=== PATIENT | male | born 1995 | race Caucasian/White ===

== ENCOUNTER 2016-08-25 17:25 | Emergency (ER) | payer OTHER ==
[~2016-08-25] VITALS: Ht 167.6 cm; Wt 75.7 kg
[2016-08-25 17:35] VITALS: BP 141/93; PULSE 78; RESP 16; O2SAT 97
--- NOTE | 2016-08-25 17:49 | ED.REPORT ---
HPI-General Illness Date of Service Aug 25, 2016 ED Provider: Froy Staples PA-C Wes is an otherwise healthy 21-year-old male presents with a laceration on his left index finger. 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 He washed the wound with soap and water and bandaged it and continued working. He has been dressing it with Band-Aids and antibiotic ointment. Denies bleeding/clotting disorders, diabetes, HIV, immunosuppression, redness, swelling, pain, pus. Patient is unsure when his last tetanus shot was. He is right-handed. Nursing Notes Stated Complaint: FINGER INJURY,WORK RELATED Chief Complaint: Extremity Trauma Nursing Notes Reviewed: Yes Allergies: Coded Allergies: No Known Allergies (Unverified Allergy, 03/07/12) General Time Seen by MD: 17:40 Chief Complaint Laceration Past Medical History Past Medical History Denies Past Surgical History denies Smoking History Former Smoker Social History Alcohol Use: Denies alcohol use Drug Use: Denies drug use Occupation lives with friends Review of Systems Negative unless stated otherwise in history of present illness Physical Exam General: Well appearing, well developed, well nourished, no acute distress. Left index finger: 1 cm thin laceration across the distal tip of finger. Brisk capillary refill adjacent to the wound. Overlying tissue appears nonvital. No redness, swelling, purulence or tenderness. Head: Atraumatic, normocephalic. Eyes: No scleral icterus or injection. No discharge. Vision grossly intact. ENT: Voice clear, hearing grossly intact. Respiratory: No respiratory distress, no increased work of breathing. Speaks in complete sentences. Skin: Warm and dry. Neurological: Grossly nonfocal. Psychological: alert and oriented. Speech appropriate, linear and logical. Behavior appropriate. Vital Signs Vital Signs Date Time Temp Pulse Resp B/P Pulse Ox O2 Delivery O2 Flow Rate FiO2 08/25/16 18:59 36.4 78 16 141/93 97 Room Air 08/25/16 17:35 36.4 78 16 141/93 97 Room Air Initial VS: Vital signs abnormal (elevated blood pressure) Re-Eval/Medical Decision Med Decision/Clinical Course Otherwise healthy 19-year-old male presents with a chief complaint of a laceration sustained approximately 5 days ago on a meat grader. Patient is unsure of his tetanus status. No indication of immunocompromise. Physical examination reveals a roughly 1 cm finger laceration of the distal tip of the left index finger. Overlying tissue appears devitalized however there is no indication of infection. this appears to be healing well. Provided Tdap. I do not see an indication for antibiotics. Advised continuing wound care, primary care follow-up, prior emergency return precautions. Patient verbalizes understanding of and consented to plan. Discharge & Departure Primary Impression: Laceration of finger, left Encounter type: initial encounter Qualified Code: S61.219A - Laceration without foreign body of unspecified finger without damage to nail, initial encounter Additional Impression: Elevated blood pressure reading Disposition: Home Discharge Condition All VS Reviewed: Yes Condition: Stable Additional Instructions: Evaluation for a finger laceration in the emergency department. History and physical are reassuring that this wound appears to be healing quite well, with no sign of infection. I see no indication to open the wound to clean or explore for foreign body. I do not see an indication for antibiotics. Because you are not completely sure when your last tetanus shot was, we have provided you one here in the emergency department. Continue caring for the wound as you have been, with antibiotic ointment and a bandage. I would expect the overlying tissue to peel off as the wound heals. Follow-up with your primary care provider if you have any further concerns. Return to emergency department for new or worsening symptoms including fever, increasing redness, swelling, pain or the appearance of pus. I also note that your blood pressure was elevated during your visit to the emergency department. Please discuss this with your primary care provider. Referrals: Sanam Buenrostro (PCP) EDSupervising Provider for APC: Nabil Delacruz MD copies to: Sanam Buenrostro Seth PA-C Aug 25, 2016 17:49
[2016-08-25] MEDS ORDERED: TdaP Vaccine 0.5 mL Inj IM ONE (17:50)
[2016-08-25 18:59] VITALS: BP 141/93; PULSE 78; RESP 16; O2SAT 97
== END 2016-08-25 19:00 | disposition home or self-care (01) ==
LOC: SED 17:25
DX: S61.211A Laceration without foreign body of left index finger without damage to nail, initial encounter (principal); W29.0XXA Contact with powered kitchen appliance, initial encounter; Y92.59 Other trade areas as the place of occurrence of the external cause; Y93.89 Activity, other specified; Y99.0 Civilian activity done for income or pay; R03.0 Elevated blood-pressure reading, without diagnosis of hypertension; Z87.891 Personal history of nicotine dependence; Z23 Encounter for immunization